=== PATIENT | female | born 1950 | race Caucasian/White ===

== ENCOUNTER 2016-07-19 09:35 | Outpatient (RCR) | payer MEDICARE, OTHER ==
[2015-06-22 14:02] VITALS: BP 132/85
[~2016-07-19 09:35] MED LIST: ALLERCLEAR10 MG PO; CORRECTOL5 M1 PO; FELODIPINE10 MG PO; FLAGYL500 M1 PO; FLUOXETINE HCL20 MG PO; LEVAQUIN 750MG750 M1 PO; MIRALAX17 GM PO; NORCO 325 MG-51 TAB PO; PREDNISONE20 MG PO
== END 2016-08-16 13:22 ==
LOC: OPPGERO 09:35
DX: F41.9 Anxiety disorder, unspecified (principal); F41.0 Panic disorder [episodic paroxysmal anxiety]; F32.9 Major depressive disorder, single episode, unspecified

== ENCOUNTER 2016-08-17 10:32 | Outpatient (RCR) | payer MEDICARE, OTHER ==
[2015-06-22 14:02] VITALS: BP 132/85
== END 2016-09-13 10:27 ==
LOC: OPPGERO 10:32
DX: F41.9 Anxiety disorder, unspecified (principal); F41.0 Panic disorder [episodic paroxysmal anxiety]; F32.9 Major depressive disorder, single episode, unspecified

== ENCOUNTER 2016-09-14 07:45 | Outpatient (RCR) | payer MEDICARE, OTHER ==
[2015-06-22 14:02] VITALS: BP 132/85
== END 2016-10-14 15:06 ==
LOC: OPPGERO 07:45
DX: F32.9 Major depressive disorder, single episode, unspecified (principal); F41.0 Panic disorder [episodic paroxysmal anxiety]; F41.9 Anxiety disorder, unspecified

== ENCOUNTER 2016-10-15 09:00 | Outpatient (RCR) | payer MEDICARE, OTHER ==
[2015-06-22 14:02] VITALS: BP 132/85
== END 2016-11-11 15:31 ==
LOC: OPPGERO 09:00
DX: F32.9 Major depressive disorder, single episode, unspecified (principal); F41.0 Panic disorder [episodic paroxysmal anxiety]; F41.9 Anxiety disorder, unspecified

== ENCOUNTER 2016-11-14 08:30 | Outpatient (RCR) | payer MEDICARE, OTHER ==
[2015-06-22 14:02] VITALS: BP 132/85
== END 2016-12-14 16:53 ==
LOC: OPPGERO 08:30
DX: F32.9 Major depressive disorder, single episode, unspecified (principal); F41.0 Panic disorder [episodic paroxysmal anxiety]; F41.9 Anxiety disorder, unspecified

== ENCOUNTER 2016-12-15 11:31 | Outpatient (RCR) | payer MEDICARE, OTHER ==
[2015-06-22 14:02] VITALS: BP 132/85
== END 2017-01-13 15:54 | disposition home or self-care (01) ==
LOC: OPPGERO 11:31
DX: F32.9 Major depressive disorder, single episode, unspecified (principal); F41.0 Panic disorder [episodic paroxysmal anxiety]; F41.9 Anxiety disorder, unspecified

== ENCOUNTER 2017-01-16 09:17 | Outpatient (RCR) | payer MEDICARE, OTHER ==
[2015-06-22 14:02] VITALS: BP 132/85
== END 2017-02-13 15:18 ==
LOC: OPPGERO 09:17
DX: F32.9 Major depressive disorder, single episode, unspecified (principal); F41.0 Panic disorder [episodic paroxysmal anxiety]; F41.9 Anxiety disorder, unspecified

== ENCOUNTER 2017-02-14 09:05 | Outpatient (RCR) | payer MEDICARE, OTHER ==
[2015-06-22 14:02] VITALS: BP 132/85
== END 2017-03-16 14:37 ==
LOC: OPPGERO 09:05
DX: F32.9 Major depressive disorder, single episode, unspecified (principal); F41.0 Panic disorder [episodic paroxysmal anxiety]

== ENCOUNTER 2017-03-17 08:37 | Outpatient (RCR) | payer MEDICARE, OTHER ==
[2015-06-22 14:02] VITALS: BP 132/85
== END 2017-04-14 15:17 ==
LOC: OPPGERO 08:37
DX: F32.9 Major depressive disorder, single episode, unspecified (principal); F41.0 Panic disorder [episodic paroxysmal anxiety]

== ENCOUNTER 2017-04-16 09:00 | Outpatient (RCR) | payer MEDICARE, OTHER ==
[2015-06-22 14:02] VITALS: BP 132/85
== END 2017-05-16 16:24 | disposition still patient (30) ==
LOC: OPPGERO 09:00
DX: F32.0 Major depressive disorder, single episode, mild (principal); F41.0 Panic disorder [episodic paroxysmal anxiety]

== ENCOUNTER 2017-05-17 10:10 | Outpatient (RCR) | payer MEDICARE, OTHER ==
[2015-06-22 14:02] VITALS: BP 132/85
== END 2017-06-15 13:01 ==
LOC: OPPGERO 10:10
DX: F32.0 Major depressive disorder, single episode, mild (principal); F41.0 Panic disorder [episodic paroxysmal anxiety]

== ENCOUNTER 2017-06-16 09:00 | Outpatient (RCR) | payer MEDICARE, OTHER ==
[2015-06-22 14:02] VITALS: BP 132/85
== END 2017-07-14 15:38 ==
LOC: OPPGERO 09:00
DX: F32.0 Major depressive disorder, single episode, mild (principal); F41.0 Panic disorder [episodic paroxysmal anxiety]

== ENCOUNTER 2017-07-18 09:00 | Outpatient (RCR) | payer MEDICARE, OTHER ==
[2015-06-22 14:02] VITALS: BP 132/85
== END 2017-08-16 15:27 ==
LOC: OPPGERO 09:00
DX: F32.0 Major depressive disorder, single episode, mild (principal); F41.0 Panic disorder [episodic paroxysmal anxiety]

== ENCOUNTER 2017-08-17 11:14 | Outpatient (RCR) | payer MEDICARE, OTHER ==
[2015-06-22 14:02] VITALS: BP 132/85
== END 2017-09-13 14:20 ==
LOC: OPPGERO 11:14
DX: F41.1 Generalized anxiety disorder (principal); F41.0 Panic disorder [episodic paroxysmal anxiety]; I10 Essential (primary) hypertension

== ENCOUNTER 2017-09-14 10:32 | Outpatient (RCR) | payer MEDICARE, OTHER ==
[2015-06-22 14:02] VITALS: BP 132/85
== END 2017-10-13 11:21 ==
LOC: OPPGERO 10:32
DX: F41.1 Generalized anxiety disorder (principal); F41.0 Panic disorder [episodic paroxysmal anxiety]; I10 Essential (primary) hypertension; J30.2 Other seasonal allergic rhinitis; Z86.59 Personal history of other mental and behavioral disorders

== ENCOUNTER 2017-10-16 09:37 | Outpatient (RCR) | payer MEDICARE, OTHER ==
[2015-06-22 14:02] VITALS: BP 132/85
== END 2017-11-13 13:17 ==
LOC: OPPGERO 09:37
DX: F41.1 Generalized anxiety disorder (principal); F41.0 Panic disorder [episodic paroxysmal anxiety]; I10 Essential (primary) hypertension; J30.2 Other seasonal allergic rhinitis; Z86.59 Personal history of other mental and behavioral disorders

== ENCOUNTER 2017-11-14 09:12 | Outpatient (RCR) | payer MEDICARE, OTHER ==
[2015-06-22 14:02] VITALS: BP 132/85
== END 2017-12-14 13:45 ==
LOC: OPPGERO 09:12
DX: F41.1 Generalized anxiety disorder (principal); F41.0 Panic disorder [episodic paroxysmal anxiety]; I10 Essential (primary) hypertension; Z86.59 Personal history of other mental and behavioral disorders; Z79.899 Other long term (current) drug therapy

== ENCOUNTER → 2017-11-29 | Outpatient (CLI) | payer MEDICARE, OTHER ==
[2015-06-22 14:02] VITALS: BP 132/85
== END ==
LOC: RAD 08:32
DX: M79.644 Pain in right finger(s) (principal); M18.12 Unilateral primary osteoarthritis of first carpometacarpal joint, left hand

== ENCOUNTER 2017-12-15 10:48 | Outpatient (RCR) | payer MEDICARE, OTHER ==
[2015-06-22 14:02] VITALS: BP 132/85
== END 2018-01-12 13:09 ==
LOC: OPPGERO 10:48
DX: F41.1 Generalized anxiety disorder (principal); F41.0 Panic disorder [episodic paroxysmal anxiety]; Z86.59 Personal history of other mental and behavioral disorders; I10 Essential (primary) hypertension; Z63.79 Other stressful life events affecting family and household

== ENCOUNTER 2018-01-15 10:02 | Outpatient (RCR) | payer MEDICARE, OTHER ==
[2015-06-22 14:02] VITALS: BP 132/85
== END 2018-02-13 14:23 ==
LOC: OPPGERO 10:02
DX: F41.1 Generalized anxiety disorder (principal); F41.0 Panic disorder [episodic paroxysmal anxiety]; Z86.59 Personal history of other mental and behavioral disorders; Z65.8 Other specified problems related to psychosocial circumstances; I10 Essential (primary) hypertension; Z79.899 Other long term (current) drug therapy

== ENCOUNTER 2019-05-02 09:30 | Outpatient (RCR) | payer MEDICARE, OTHER ==
[2015-06-22 14:02] VITALS: BP 132/85
== END 2019-05-02 10:00 | disposition still patient (30) ==
LOC: PT 09:30
DX: M25.562 Pain in left knee (principal)

== ENCOUNTER → 2019-06-05 | Outpatient (CLI) | payer MEDICARE, OTHER ==
[2015-06-22 14:02] VITALS: BP 132/85
== END ==
LOC: RAD 07:30
DX: M18.9 Osteoarthritis of first carpometacarpal joint, unspecified (principal); M25.562 Pain in left knee

== ENCOUNTER → 2021-05-19 | Outpatient (CLI) | payer MEDICARE, OTHER | LOC: RAD 09:45 | DX: M19.012 Primary osteoarthritis, left shoulder (principal) ==

== ENCOUNTER → 2021-06-08 | Outpatient (CLI) | payer MEDICARE, OTHER | LOC: RAD 05-27 19:45 | DX: M75.122 Complete rotator cuff tear or rupture of left shoulder, not specified as traumatic (principal) ==

== ENCOUNTER 2021-09-15 10:45 | Outpatient (RCR) | payer MEDICARE, OTHER | END 2021-10-14 | disposition home or self-care (01) | LOC: PT | DX: M25.512 Pain in left shoulder (principal); Z98.890 Other specified postprocedural states ==

== ENCOUNTER 2021-10-15 10:46 | Outpatient (RCR) | payer MEDICARE, OTHER | END 2021-11-13 | disposition still patient (30) | LOC: PT | DX: M25.512 Pain in left shoulder (principal); Z96.612 Presence of left artificial shoulder joint ==

== ENCOUNTER 2021-11-16 10:24 | Outpatient (RCR) | payer MEDICARE, OTHER | END 2021-12-14 | disposition home or self-care (01) | LOC: PT | DX: M25.512 Pain in left shoulder (principal); Z98.890 Other specified postprocedural states ==

== ENCOUNTER 2021-12-17 10:30 | Outpatient (RCR) | payer MEDICARE, OTHER | END 2022-01-13 | disposition still patient (30) | LOC: PT | DX: M25.512 Pain in left shoulder (principal); Z98.890 Other specified postprocedural states ==

== ENCOUNTER 2022-01-14 09:59 | Outpatient (RCR) | payer MEDICARE, OTHER | END 2022-01-27 17:00 | disposition home or self-care (01) | LOC: PT 09:59 | DX: M25.512 Pain in left shoulder (principal) ==

== ENCOUNTER 2022-02-03 12:51 | Outpatient (RCR) | payer MEDICARE, OTHER | END 2022-02-13 | disposition home or self-care (01) | LOC: PT | DX: R42 Dizziness and giddiness (principal) ==

== ENCOUNTER 2022-02-17 08:00 | Outpatient (RCR) | payer MEDICARE, OTHER | END 2022-03-16 | disposition home or self-care (01) | LOC: PT | DX: R42 Dizziness and giddiness (principal) ==

== ENCOUNTER 2022-03-18 08:22 | Outpatient (RCR) | payer MEDICARE, OTHER | END 2022-04-12 14:29 | disposition home or self-care (01) | LOC: PT 08:22 | DX: R42 Dizziness and giddiness (principal) ==

== ENCOUNTER → 2023-04-04 | Outpatient (CLI) | payer MEDICARE, OTHER | LOC: MAMMO 09:52 | DX: Z12.31 Encounter for screening mammogram for malignant neoplasm of breast (principal); N63.20 Unspecified lump in the left breast, unspecified quadrant ==

== ENCOUNTER 2023-05-17 07:50 | Outpatient (RCR) | payer MEDICARE, OTHER | END 2023-06-15 | disposition home or self-care (01) | LOC: PT | DX: R42 Dizziness and giddiness (principal) ==

== ENCOUNTER → 2023-08-03 | Outpatient (CLI) | payer MEDICARE, OTHER | LOC: RAD 12:11 | DX: M79.644 Pain in right finger(s) (principal); W19.XXXA Unspecified fall, initial encounter ==

== ENCOUNTER 2024-04-09 15:34 | Emergency (ER) | payer MEDICARE, OTHER ==
[~2024-04-09] VITALS: Ht 160 cm; Wt 72.3 kg
[2024-04-09] MEDS ORDERED: NS 1,000 ML IV SCH (16:00)
[2024-04-09] MEDS ORDERED: Ondansetron 4 MG/2 ML VIAL IV ONE (16:00)
[2024-04-09] MEDS ORDERED: Acetaminophen 325 MG TAB PO ONE (16:15)
[2024-04-09 16:53] LABS: BASO # 0.04 K/mm3 (0.02-0.10); EOS # 0.19 K/mm3 (0.04-0.40); EOS % 2.3 % (1.0-5.0); HEMATOCRIT 39.9 % (37.0-47.0); HEMOGLOBIN 12.7 g/dL (12.5-16.0); LYMPH# 3.82 K/mm3 (1.50-4.00); MEAN CELL VOLUME 85 fl (78-100); MEAN CORPUSCULAR HEMOGLOBIN 27 pg (27-31); MEAN CORPUSCULAR HGB CONC 32 g/dL (33-37); MEAN PLATELET VOLUME 10.4 fl (7.4-10.4); NEU # 3.56 K/mm3 (1.40-6.50); PLATELET COUNT 265 K/mm3 (130-400); RED BLOOD COUNT 4.67 M/mm3 (4.10-5.30); RED CELL DISTRIBUTION WIDTH 14.3 % (11.5-14.5); WHITE BLOOD COUNT 8.2 K/mm3 (4.8-10.8)
[2024-04-09 17:00] LABS: ALBUMIN 4.2 g/dL (3.4-4.8)
[2024-04-09] MEDS ORDERED: ZYRTEC10 M3 PO (17:00)
[2024-04-09] MEDS ORDERED: LIPITOR20 M2 PO (17:00)
[2024-04-09 17:01] LABS: SODIUM 138 mmol/L (136-145)
[2024-04-09 17:02] LABS: CALCIUM 9.9 mg/dL (8.3-10.5)
[2024-04-09 17:03] LABS: GLUCOSE 112 mg/dL (65-105); TOTAL PROTEIN 7.2 g/dL (6.2-8.1)
[2024-04-09] MEDS ORDERED: FELODIPINE10 MG PO (17:03)
[2024-04-09 17:04] LABS: CARBON DIOXIDE 22 mmol/L (23-31)
[2024-04-09] MEDS ORDERED: PROZAC20 M1 PO (17:04)
[2024-04-09 17:05] LABS: TOTAL BILIRUBIN 0.4 mg/dL (0.2-1.2)
[2024-04-09] MEDS ORDERED: COZAAR100 MG PO (17:05)
[2024-04-09] MEDS ORDERED: PRILOSEC 20MG20 MG PO (17:06)
[2024-04-09] MEDS ORDERED: METFORMIN HYD1000 M1 PO (17:06)
[2024-04-09] MEDS ORDERED: PROPRANOLOL HCL20 M2 PO (17:07)
[2024-04-09 17:08] LABS: AST-SGOT 24 U/L (5-34)
[2024-04-09] MEDS ORDERED: B-6200 MG PO (17:08)
[2024-04-09 17:09] LABS: ALT/SGPT 33 U/L (0-55)
[2024-04-09 17:21] LABS: TROPONIN-I < 0.030 ng/mL (0.00-0.033)
[2024-04-09 17:30] LABS: URINE APPEARANCE CLEAR (CLEAR); URINE COLOR LIGHT YELLOW (YELLOW)
[2024-04-09 17:31] LABS: URINE BILIRUBIN NEGATIVE (NEGATIVE); URINE BLOOD NEGATIVE (NEGATIVE); URINE GLUCOSE NEGATIVE (NEGATIVE); URINE KETONE NEGATIVE (NEGATIVE); URINE LEUKOCYTE ESTERASE NEGATIVE (NEGATIVE); URINE NITRATE NEGATIVE (NEGATIVE); URINE PROTEIN(semi-quant) NEGATIVE (NEGATIVE); URINE WBC 0-1 /hpf (0-3)
[2024-04-09 17:40] VITALS: BP 136/74
== END 2024-04-09 17:40 | disposition home or self-care (01) ==
LOC: ED 15:34
PROVIDERS: Physician Assistant
DX: T50.991A Poisoning by other drugs, medicaments and biological substances, accidental (unintentional), initial encounter (principal); R51.9 Headache, unspecified
CPT/HCPCS: J2405; J7030

== ENCOUNTER 2024-05-21 13:08 | Outpatient (RCR) | payer MEDICARE, OTHER ==
[~2024-05-21 13:08] MED LIST changes: +B-6200 MG PO; +COZAAR100 MG PO; +LIPITOR20 M2 PO; +METFORMIN HYD1000 M1 PO; +PRILOSEC 20MG20 MG PO; +PROPRANOLOL HCL20 M2 PO; +PROZAC20 M1 PO; +ZYRTEC10 M3 PO
== END 2024-06-17 15:23 ==
LOC: OPPGERO 13:08
DX: Z01.89 Encounter for other specified special examinations (principal)
CPT/HCPCS: C7903; G0410

== ENCOUNTER 2024-06-17 15:29 | Outpatient (RCR) | payer MEDICARE, OTHER | END 2024-07-18 16:36 | LOC: OPPGERO 15:29 | DX: Z01.89 Encounter for other specified special examinations (principal) | CPT/HCPCS: C7903; G0410 ==

== ENCOUNTER 2024-07-19 11:07 | Outpatient (RCR) | payer MEDICARE, OTHER | END 2024-08-16 13:06 | disposition home or self-care (01) | LOC: OPPGERO 11:07 | DX: F41.1 Generalized anxiety disorder (principal); F41.0 Panic disorder [episodic paroxysmal anxiety]; F33.1 Major depressive disorder, recurrent, moderate | CPT/HCPCS: G0410 ==

== ENCOUNTER 2024-08-19 12:21 | Outpatient (RCR) | payer MEDICARE, OTHER | END 2024-09-13 19:18 | LOC: OPPGERO 12:21 | DX: F33.9 Major depressive disorder, recurrent, unspecified (principal); F41.0 Panic disorder [episodic paroxysmal anxiety]; F41.9 Anxiety disorder, unspecified | CPT/HCPCS: G0410 ==